=== PATIENT | female | born 1980 | race Caucasian/White ===

== ENCOUNTER 2017-10-02 14:21 | Emergency (ER) | payer MEDICAID ==
[~2017-10-02] VITALS: Ht 170.2 cm; Wt 153.3 kg
[2017-10-02 14:29] VITALS: BP 153/99; Ht 170.2 cm; Wt 153.3 kg
== END 2017-10-02 17:19 | disposition home or self-care (01) ==
LOC: ED 14:21
DX: M54.31 Sciatica, right side (principal); M53.3 Sacrococcygeal disorders, not elsewhere classified; E66.9 Obesity, unspecified; Z88.0 Allergy status to penicillin

== ENCOUNTER 2019-12-29 16:15 | Emergency (ER) | payer OTHER ==
[~2019-12-29] VITALS: Ht 172.7 cm; Wt 146.1 kg
[2019-12-29 16:27] VITALS: Ht 172.7 cm; Wt 146.1 kg
[2019-12-29 18:31] VITALS: BP 153/86
== END 2019-12-29 18:31 | disposition home or self-care (01) ==
LOC: ED 16:15
DX: J00 Acute nasopharyngitis [common cold] (principal); J06.9 Acute upper respiratory infection, unspecified; E66.01 Morbid (severe) obesity due to excess calories; Z88.0 Allergy status to penicillin
CPT/HCPCS: 87804